=== PATIENT | female | born 1995 | race Two or more races ===

== ENCOUNTER 2018-11-26 04:16 | Emergency (ER) | payer BC, OTHER ==
[~2018-11-26] VITALS: Ht 172.7 cm; Wt 117.9 kg
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
[2018-11-26] MEDS ORDERED: IPRATROPIUM BROMIDE 0.5 MG/2.5 ML NEBU NEB ONE (04:45)
[2018-11-26] MEDS ORDERED: ALBUTEROL SULFATE 2.5 MG/3 ML NEBU NEB ONE (04:45)
[2018-11-26] MEDS ORDERED: ALBUTEROL SULFATE 2.5 MG/3 ML NEBU ONE (04:58)
[2018-11-26] MEDS ORDERED: IPRATROPIUM BROMIDE 0.5 MG/2.5 ML NEBU ONE (04:58)
--- NOTE | 2018-11-26 06:08 | NUR ---
Patient discharged to home in stable conditon. Written and verbal after care instructions given. Patient verbalizes understanding of instructions. Pt d/c w/ prescription per MD orders, d/c papers signed, all belongings w/ pt., ambulated out of ED w/ steady gait, instructed not to drive, awaiting ride in waiting room, no acute distress,
== END 2018-11-26 06:12 | disposition home or self-care (01) ==
LOC: ER 04:19
DX: S16.1XXA Strain of muscle, fascia and tendon at neck level, initial encounter (principal); R05 Cough; V44.5XXA Car driver injured in collision with heavy transport vehicle or bus in traffic accident, initial encounter; Y93.89 Activity, other specified; Y92.410 Unspecified street and highway as the place of occurrence of the external cause; Y99.8 Other external cause status
CPT/HCPCS: 72072; 72100; A4663; J3590